=== PATIENT | female | born 1995 | race Caucasian/White ===

== ENCOUNTER 2022-04-17 16:23 | Emergency (ER) | payer OTHER ==
[~2022-04-17] VITALS: Ht 157.5 cm; Wt 64.0 kg
[2022-04-17 16:30] VITALS: BP 96/59
--- NOTE | 2022-04-17 16:38 | NUR ---
[facility]: LEFT EYE 20/30, RIGHT EYE 20/25, BOTH EYES 20/20
[2022-04-17] MEDS ORDERED: FLUORESCEIN OPTH STRIP 1 MG OP ONE (17:45)
--- NOTE | 2022-04-17 18:49 | NUR ---
CALLED PATIENT IN LOBBY AND OUTSIDE ER LOBBY; LEFT WITHOUT DISCHARGE PAPERWORK.
--- NOTE | 2022-04-17 18:51 | NUR ---
ATTEMPTED TO D/C PT, NOT FOUND IN LOBBY/OUTSIDE. PT LEFT WITHOUT D/C PAPERS
== END 2022-04-17 18:51 | disposition home or self-care (01) ==
LOC: MED 16:23
DX: G43.909 Migraine, unspecified, not intractable, without status migrainosus (principal)
CPT/HCPCS: 99283